=== PATIENT | female | born 1985 | race Hispanic/Latino ===

== ENCOUNTER 2016-12-05 23:11 | Emergency (ER) | payer OTHER ==
[2016-12-05 23:50] VITALS: BMI 25.1
[2016-12-06 00:43] LABS: HEMOGLOBIN 12.2 g/dL (12.0-16.0); MEAN CELL VOLUME 91.8 fl (81.0-99.0); MEAN CORPUSCULAR HGB CONC 32.7 g/dL (33.0-37.0); RBC 4.08 Mil/uL (3.80-5.20); RED CELL DISTRIBUTION WIDTH 13.3 % (11.5-14.5); WHITE BLOOD COUNT 13.9 K/uL (4.8-10.8)
[2016-12-06 00:46] LABS: SQUAMOUS EPITHIAL 3 /hpf (0-5); URINE BACTERIA OCC (<OCC); URINE BILIRUBIN NEGATIVE (NEGATIVE); URINE BLOOD NEGATIVE (NEGATIVE); URINE CLARITY SLIGHTY-CLOUDY (Clear); URINE COLOR AMBER (YELLOW); URINE GLUCOSE (UA) NEG (Normal); URINE LEUKOCYTE ESTERASE MOD Leu/uL (Negative); URINE NITRATE NEGATIVE (NEGATIVE); URINE PROTEIN NEGATIVE (NEGATIVE)
== END 2016-12-06 01:15 | disposition home or self-care (01) ==
LOC: H.EROB2 23:11
DX: O47.03 False labor before 37 completed weeks of gestation, third trimester (principal); Z3A.30 30 weeks gestation of pregnancy